=== PATIENT | male | born 1975 ===

== ENCOUNTER 2017-05-12 21:28 | Inpatient (IN) ==
[2017-05-13] MEDS ORDERED: ONDANSETRON 4 MG/2 ML VIAL IV PRN (01:37)
[2017-05-13] MEDS ORDERED: MORPHINE 2 MG/1 ML SYRINGE IV PRN (01:37)
[2017-05-13] MEDS ORDERED: DEXTROSE 50% 25 GM/50 ML VIAL IV PRN (01:41)
[2017-05-13] MEDS ORDERED: GLUCAGON 1 MG VIAL IM PRN (01:41)
[2017-05-13] MEDS ORDERED: SODIUM CHLORIDE 0.9% 1,000 ML IV SCH (02:00)
[2017-05-13] MEDS: DEXTROSE 5% NACL 0.9% 1,000 ML IV SCH ×3 (02:55→22:17)
[2017-05-13 03:57] LABS: Basophils # 0.1 10*3/uL (0.0-0.2); Basophils % 0.4 % (0.0-0.8); Hematocrit 24.7 VOL% (42.0-52.0); Hemoglobin 8.5 GM/DL (14.0-18.0); Immature Granulocytes % 0.8 %; Immature Granulocytes Absolute 0.13 #; Lymphocytes # 0.8 10*3/uL (1.4-4.0); Lymphocytes % 5.1 % (21.2-54.2); Mean Corpuscular HGB Conc 34.4 GM/DL (32-36); Mean Corpuscular Hemoglobin 32 PG (27-34); Mean Corpuscular Volume 91.5 FL (87-102); Mean Platelet Volume 10.4 FL (9.6-12.0); Monocytes # 1.3 10*3/uL (0.11-0.8); Monocytes % 8.1 % (1.7-12.7); Neutrophils % 85.6 % (38.7-73.9); Platelet Count 326 T/CUMM (130-400); White Blood Count 16.4 T/CUMM (4-12)
[2017-05-13 04:35] LABS: Albumin 1.8 G/DL (3.4-5.0); Bilirubin,Total 0.4 MG/DL (0.2-1.0); Calcium 6.1 MG/DL (8.5-10.1); Osmolality,Calculated 292.2 MOS/KG (273-304); Potassium 3.8 MMOL/L (3.5-5.1); Risk Ratio 4.06; Total Protein 5.9 G/DL (6.4-8.3); VLDL CHOLESTEROL 27.6 MG/DL
[2017-05-13] MEDS ORDERED: INSULIN REGULAR 100 UNIT/ML SUBCUT SCH (06:00)
[2017-05-13] MEDS: PIPERACILLIN/TAZOBACTAM 3,375 MG in SODIUM CHLORIDE 0.9% 100 ML IV SCH ×2 (06:50→18:45)
[2017-05-13] MEDS ORDERED: ACETAMINOPHEN 500 MG TABLET PO ONE (07:01)
[2017-05-13] MEDS ORDERED: SKIN HEALING OINT (AQUAPHOR) 50 GM TUBE TOP PRN (08:00)
[2017-05-13] MEDS ORDERED: ACETAMINOPHEN 325 MG TABLET PO PRN (08:00)
[2017-05-13] MEDS ORDERED: VANCOMYCIN INJ 1,750 MG in SODIUM CHLORIDE 0.9% 500 ML IV ONE (08:00)
[2017-05-13] MEDS ORDERED: CALCIUM GLUCONATE 2,000 MG in SODIUM CHLORIDE 0.9% 100 ML IV ONE (08:00)
[2017-05-13] MEDS: CARVEDILOL 3.125 MG TABLET PO SCH ×2 (09:10→20:42)
[2017-05-13] MEDS: amLODIPine 5 MG TABLET PO SCH (09:10)
[2017-05-13] MEDS: MULTIVITAMIN (CENTRUM) TABLET PO SCH (09:19)
[2017-05-13] MEDS: FUROSEMIDE 80 MG TABLET PO SCH (09:19)
[2017-05-13] MEDS: ENOXAPARIN 30 MG/0.3 ML SYRINGE SUBCUT SCH (09:19)
[2017-05-13] MEDS: SKIN HEALING OINT (AQUAPHOR) 50 GM TUBE TOP SCH ×2 (09:19→20:42)
[2017-05-13] MEDS: PANTOPRAZOLE 40 MG TABLET PO SCH (09:20)
[2017-05-13] MEDS ORDERED: PROPOFOL 200 MG/20 ML VIAL IV ONE (11:41)
[2017-05-13] MEDS ORDERED: fentaNYL 100 MCG/2 ML VIAL ONE (11:42)
[2017-05-13] MEDS ORDERED: MIDAZOLAM 2 MG/2 ML VIAL ONE (11:42)
[2017-05-13] MEDS ORDERED: VANCOMYCIN INJ 1,750 MG in SODIUM CHLORIDE 0.9% 500 ML IV PRN (14:55)
[2017-05-13] MEDS: GABAPENTIN 100 MG CAPSULE PO SCH (20:42)
[2017-05-14 01:30] LABS: Amorphous Crystals,Urine Occasional /HPF (Few); Apearance,Urine CLOUDY (Clear); Bacteria,Urine Occasional /HPF (Few); Bilirubin,Urine Negative (Negative); Blood, Urine Small mg/dL (Negative); Glucose,Urine (UA) >=500 mg/dL (Negative); Granular Casts,Urine 8 /LPF (0-1); Ketones,Urine Negative (Negative); Nitrite,Urine Negative (Negative); Protein,Urine >=500 MG/DL; Urine Color Amber (Yellow); Urine Specific Gravity 1.013 (1.001-1.035); WBC,Urine 15 /HPF (0-6)
[2017-05-14] MEDS: PIPERACILLIN/TAZOBACTAM 3,375 MG in SODIUM CHLORIDE 0.9% 100 ML IV SCH ×2 (06:07→18:07)
[2017-05-14 06:34] LABS: Basophils # 0.1 10*3/uL (0.0-0.2); Basophils % 0.3 % (0.0-0.8); Eosinophils # 0.5 10*3/uL (0.0-0.87); Eosinophils % 2.7 % (0.00-10.9); Hematocrit 24.4 VOL% (42.0-52.0); Hemoglobin 8.6 GM/DL (14.0-18.0); Immature Granulocytes % 1.1 %; Immature Granulocytes Absolute 0.19 #; Lymphocytes # 1.1 10*3/uL (1.4-4.0); Lymphocytes % 6.2 % (21.2-54.2); Mean Corpuscular HGB Conc 35.2 GM/DL (32-36); Mean Corpuscular Hemoglobin 32 PG (27-34); Mean Corpuscular Volume 91.4 FL (87-102); Mean Platelet Volume 10.2 FL (9.6-12.0); Monocytes # 1.2 10*3/uL (0.11-0.8); Monocytes % 6.8 % (1.7-12.7); Neutrophils % 82.9 % (38.7-73.9); Platelet Count 337 T/CUMM (130-400); Red Blood Count 2.67 MC/CUMM (3.8-5.5); Red Cell Distribution Width 13.5 % (9.3-17.3)
[2017-05-14 07:05] LABS: Albumin 1.8 G/DL (3.4-5.0); Bilirubin,Total 0.8 MG/DL (0.2-1.0); Osmolality,Calculated 300.1 MOS/KG (273-304); Potassium 3.7 MMOL/L (3.5-5.1); Total Protein 5.7 G/DL (6.4-8.3)
[2017-05-14 07:29] LABS: Barbiturates Screen,Urine Negative (Negative); Benzodiazepines Screen,Urine Positive (Negative); Cannabinoid Screen,Urine Negative (Negative); Opiate Screen,Urine Negative (Negative); Phencyclidine Screen,Urine Negative (Negative)
[2017-05-14] MEDS: INSULIN REGULAR 100 UNIT/ML SUBCUT SCH ×4 (08:36→21:11)
[2017-05-14] MEDS: PANTOPRAZOLE 40 MG TABLET PO SCH (08:37)
[2017-05-14] MEDS: MULTIVITAMIN (CENTRUM) TABLET PO SCH (08:37)
[2017-05-14] MEDS: amLODIPine 5 MG TABLET PO SCH (08:37)
[2017-05-14] MEDS: CARVEDILOL 3.125 MG TABLET PO SCH ×2 (08:37→21:10)
[2017-05-14] MEDS: FUROSEMIDE 80 MG TABLET PO SCH (08:37)
[2017-05-14] MEDS: ENOXAPARIN 30 MG/0.3 ML SYRINGE SUBCUT SCH (08:37)
[2017-05-14] MEDS: SKIN HEALING OINT (AQUAPHOR) 50 GM TUBE TOP SCH ×2 (08:39→21:14)
[2017-05-14] MEDS: SODIUM BICARBONATE 650 MG TABLET PO SCH ×2 (14:24→21:10)
[2017-05-14] MEDS ORDERED: INSULIN GLARGINE 100 UNIT/ML SUBCUT SCH (21:00)
[2017-05-14] MEDS: GABAPENTIN 100 MG CAPSULE PO SCH (21:10)
[2017-05-15] MEDS: PIPERACILLIN/TAZOBACTAM 3,375 MG in SODIUM CHLORIDE 0.9% 100 ML IV SCH ×3 (06:03→18:28)
[2017-05-15] MEDS: DEXTROSE 5% NACL 0.9% 1,000 ML IV SCH ×2 (06:04→08:34)
[2017-05-15] MEDS: PANTOPRAZOLE 40 MG TABLET PO SCH (08:27)
[2017-05-15] MEDS: amLODIPine 5 MG TABLET PO SCH (08:27)
[2017-05-15] MEDS: CARVEDILOL 3.125 MG TABLET PO SCH ×2 (08:27→20:32)
[2017-05-15] MEDS: SODIUM BICARBONATE 650 MG TABLET PO SCH ×3 (08:27→20:32)
[2017-05-15] MEDS: MULTIVITAMIN (CENTRUM) TABLET PO SCH (08:27)
[2017-05-15] MEDS: INSULIN REGULAR 100 UNIT/ML SUBCUT SCH ×4 (08:27→20:32)
[2017-05-15] MEDS: SKIN HEALING OINT (AQUAPHOR) 50 GM TUBE TOP SCH ×2 (08:28→21:23)
[2017-05-15] MEDS: FUROSEMIDE 80 MG TABLET PO SCH (08:31)
[2017-05-15] MEDS: ENOXAPARIN 30 MG/0.3 ML SYRINGE SUBCUT SCH (08:31)
[2017-05-15] MEDS: INSULIN GLARGINE 100 UNIT/ML SUBCUT SCH (20:31)
[2017-05-15] MEDS: GABAPENTIN 100 MG CAPSULE PO SCH (20:32)
[2017-05-16] MEDS: DEXTROSE 5% NACL 0.9% 1,000 ML IV SCH (05:19)
[2017-05-16 06:02] LABS: Basophils # 0.1 10*3/uL (0.0-0.2); Basophils % 0.6 % (0.0-0.8); Eosinophils # 0.8 10*3/uL (0.0-0.87); Eosinophils % 7.4 % (0.00-10.9); Hematocrit 22.9 VOL% (42.0-52.0); Hemoglobin 7.6 GM/DL (14.0-18.0); Immature Granulocytes % 4.1 %; Immature Granulocytes Absolute 0.43 #; Lymphocytes # 1.3 10*3/uL (1.4-4.0); Lymphocytes % 12.7 % (21.2-54.2); Mean Corpuscular HGB Conc 33.2 GM/DL (32-36); Mean Corpuscular Hemoglobin 31 PG (27-34); Mean Corpuscular Volume 93.1 FL (87-102); Mean Platelet Volume 10.2 FL (9.6-12.0); Monocytes % 9.1 % (1.7-12.7); Neutrophils # 6.9 10*3/uL (1.4-7.4); Neutrophils % 66.1 % (38.7-73.9); Platelet Count 457 T/CUMM (130-400); Red Blood Count 2.46 MC/CUMM (3.8-5.5); Red Cell Distribution Width 13.3 % (9.3-17.3); White Blood Count 10.4 T/CUMM (4-12)
[2017-05-16] MEDS: PIPERACILLIN/TAZOBACTAM 3,375 MG in SODIUM CHLORIDE 0.9% 100 ML IV SCH ×2 (06:03→18:18)
[2017-05-16 06:29] LABS: Albumin 1.5 G/DL (3.4-5.0); Bilirubin,Total 0.4 MG/DL (0.2-1.0); Calcium 6.3 MG/DL (8.5-10.1); Potassium 3.8 MMOL/L (3.5-5.1); Total Protein 5.8 G/DL (6.4-8.3)
[2017-05-16] MEDS ORDERED: SODIUM CHLORIDE 0.9% 1,000 ML IV PRN (06:50)
[2017-05-16] MEDS: INSULIN REGULAR 100 UNIT/ML SUBCUT SCH ×4 (08:40→22:10)
[2017-05-16] MEDS: amLODIPine 5 MG TABLET PO SCH (08:44)
[2017-05-16] MEDS: CARVEDILOL 3.125 MG TABLET PO SCH ×2 (08:44→22:10)
[2017-05-16] MEDS: PANTOPRAZOLE 40 MG TABLET PO SCH (08:45)
[2017-05-16] MEDS: FUROSEMIDE 80 MG TABLET PO SCH (08:45)
[2017-05-16] MEDS: MULTIVITAMIN (CENTRUM) TABLET PO SCH (08:45)
[2017-05-16] MEDS: SODIUM BICARBONATE 650 MG TABLET PO SCH ×3 (08:45→22:10)
[2017-05-16 08:46] LABS: Hemoglobin 8.3 GM/DL (14.0-18.0)
[2017-05-16] MEDS: SODIUM CHLORIDE 0.45% 1,000 ML IV SCH (08:46)
[2017-05-16] MEDS: SKIN HEALING OINT (AQUAPHOR) 50 GM TUBE TOP SCH ×2 (08:46→22:11)
[2017-05-16] MEDS: ENOXAPARIN 30 MG/0.3 ML SYRINGE SUBCUT SCH (08:47)
[2017-05-16] MEDS: GABAPENTIN 100 MG CAPSULE PO SCH (22:10)
[2017-05-16] MEDS: INSULIN GLARGINE 100 UNIT/ML SUBCUT SCH (22:11)
[2017-05-17 05:58] LABS: Basophils # 0.1 10*3/uL (0.0-0.2); Basophils % 0.8 % (0.0-0.8); Eosinophils # 0.8 10*3/uL (0.0-0.87); Eosinophils % 8.4 % (0.00-10.9); Hematocrit 23.1 VOL% (42.0-52.0); Hemoglobin 8.2 GM/DL (14.0-18.0); Immature Granulocytes Absolute 0.36 #; Lymphocytes # 1.1 10*3/uL (1.4-4.0); Lymphocytes % 12.4 % (21.2-54.2); Mean Corpuscular HGB Conc 35.5 GM/DL (32-36); Mean Corpuscular Hemoglobin 32 PG (27-34); Mean Corpuscular Volume 90.2 FL (87-102); Monocytes # 0.9 10*3/uL (0.11-0.8); Monocytes % 9.7 % (1.7-12.7); Neutrophils # 5.8 10*3/uL (1.4-7.4); Neutrophils % 64.7 % (38.7-73.9); Platelet Count 522 T/CUMM (130-400); Red Blood Count 2.56 MC/CUMM (3.8-5.5); Red Cell Distribution Width 13.2 % (9.3-17.3); White Blood Count 8.9 T/CUMM (4-12)
[2017-05-17] MEDS: SODIUM CHLORIDE 0.45% 1,000 ML IV SCH (06:17)
[2017-05-17 06:34] LABS: Albumin 1.5 G/DL (3.4-5.0); Bilirubin,Total 0.4 MG/DL (0.2-1.0); Calcium 6.2 MG/DL (8.5-10.1); Osmolality,Calculated 291.1 MOS/KG (273-304); Total Protein 5.6 G/DL (6.4-8.3)
[2017-05-17] MEDS: PIPERACILLIN/TAZOBACTAM 3,375 MG in SODIUM CHLORIDE 0.9% 100 ML IV SCH (06:44)
[2017-05-17] MEDS: INSULIN REGULAR 100 UNIT/ML SUBCUT SCH ×4 (08:11→21:50)
[2017-05-17] MEDS: amLODIPine 5 MG TABLET PO SCH (09:01)
[2017-05-17] MEDS: FUROSEMIDE 80 MG TABLET PO SCH (09:02)
[2017-05-17] MEDS: CARVEDILOL 3.125 MG TABLET PO SCH ×2 (09:02→21:49)
[2017-05-17] MEDS: ENOXAPARIN 30 MG/0.3 ML SYRINGE SUBCUT SCH (09:02)
[2017-05-17] MEDS: SODIUM BICARBONATE 650 MG TABLET PO SCH ×3 (09:02→21:49)
[2017-05-17] MEDS: MULTIVITAMIN (CENTRUM) TABLET PO SCH (09:02)
[2017-05-17] MEDS: PANTOPRAZOLE 40 MG TABLET PO SCH (09:02)
[2017-05-17] MEDS: SKIN HEALING OINT (AQUAPHOR) 50 GM TUBE TOP SCH ×2 (09:02→21:52)
[2017-05-17] MEDS: AMPICILLIN/SULBACTAM 3,000 MG in SODIUM CHLORIDE 0.9% 100 ML IV SCH (16:48)
[2017-05-17 19:20] LABS: Hemoglobin 9.9 GM/DL (14.0-18.0)
[2017-05-17] MEDS: INSULIN GLARGINE 100 UNIT/ML SUBCUT SCH (21:49)
[2017-05-17] MEDS: GABAPENTIN 100 MG CAPSULE PO SCH (21:49)
[2017-05-18 07:30] LABS: Calcium 6.4 MG/DL (8.5-10.1); Osmolality,Calculated 292.1 MOS/KG (273-304); Potassium 4.2 MMOL/L (3.5-5.1)
[2017-05-18 07:59] LABS: Hepatitis A Ab IgM Quant 0.06 Index; Hepatitis A Ab IgM Result Negative (Negative); Hepatitis B Core IgM Quant 0.17 Index; Hepatitis B Core IgM Result Negative (Negative); Hepatitis B Surface Ag Quant < 0.10 Index; Hepatitis B Surface Ag Result Negative (Negative); Hepatitis C Virus Ab Quant 0.14 Index; Hepatitis C Virus Ab Result Negative (Negative)
[2017-05-18] MEDS: INSULIN REGULAR 100 UNIT/ML SUBCUT SCH ×4 (09:17→21:58)
[2017-05-18] MEDS: PANTOPRAZOLE 40 MG TABLET PO SCH (09:56)
[2017-05-18] MEDS: amLODIPine 5 MG TABLET PO SCH (09:56)
[2017-05-18] MEDS: SODIUM BICARBONATE 650 MG TABLET PO SCH ×3 (09:56→21:56)
[2017-05-18] MEDS: CARVEDILOL 3.125 MG TABLET PO SCH ×2 (09:56→21:57)
[2017-05-18] MEDS: SKIN HEALING OINT (AQUAPHOR) 50 GM TUBE TOP SCH ×2 (09:56→21:58)
[2017-05-18] MEDS: MULTIVITAMIN (CENTRUM) TABLET PO SCH (09:56)
[2017-05-18] MEDS: FUROSEMIDE 80 MG TABLET PO SCH (09:56)
[2017-05-18] MEDS: ENOXAPARIN 30 MG/0.3 ML SYRINGE SUBCUT SCH (09:58)
[2017-05-18] MEDS: AMPICILLIN/SULBACTAM 3,000 MG in SODIUM CHLORIDE 0.9% 100 ML IV SCH (15:02)
[2017-05-18] MEDS: GABAPENTIN 100 MG CAPSULE PO SCH (21:57)
[2017-05-18] MEDS: INSULIN GLARGINE 100 UNIT/ML SUBCUT SCH (21:57)
[2017-05-19] MEDS ORDERED: TISSUE ADHESIVE 1 EACH APPLICATOR TOP ONE (06:14)
[2017-05-19] MEDS ORDERED: HEPARIN 5,000 UNIT/1 ML VIAL ONE (06:14)
[2017-05-19] MEDS ORDERED: LIDOCAINE 1%/EPI INJ 20 ML VIAL ONE (06:14)
[2017-05-19] MEDS ORDERED: BUPIVACAINE 0.25% 50 ML VIAL ONE (06:14)
[2017-05-19 06:38] LABS: Basophils # 0.1 10*3/uL (0.0-0.2); Basophils % 0.8 % (0.0-0.8); Eosinophils # 0.9 10*3/uL (0.0-0.87); Eosinophils % 8.9 % (0.00-10.9); Hemoglobin 11.3 GM/DL (14.0-18.0); Immature Granulocytes % 2.1 %; Immature Granulocytes Absolute 0.22 #; Lymphocytes # 1.2 10*3/uL (1.4-4.0); Lymphocytes % 11.3 % (21.2-54.2); Mean Corpuscular HGB Conc 35.3 GM/DL (32-36); Mean Corpuscular Hemoglobin 31 PG (27-34); Mean Corpuscular Volume 87.9 FL (87-102); Mean Platelet Volume 9.3 FL (9.6-12.0); Monocytes # 0.8 10*3/uL (0.11-0.8); Monocytes % 7.8 % (1.7-12.7); Neutrophils # 7.1 10*3/uL (1.4-7.4); Neutrophils % 69.1 % (38.7-73.9); Platelet Count 637 T/CUMM (130-400); Red Blood Count 3.64 MC/CUMM (3.8-5.5); Red Cell Distribution Width 13.8 % (9.3-17.3); White Blood Count 10.3 T/CUMM (4-12)
[2017-05-19 07:08] LABS: Calcium 6.4 MG/DL (8.5-10.1); Potassium 4.5 MMOL/L (3.5-5.1)
[2017-05-19] MEDS ORDERED: PROPOFOL 200 MG/20 ML VIAL IV ONE (07:49)
[2017-05-19] MEDS ORDERED: fentaNYL 100 MCG/2 ML VIAL ONE (07:49)
[2017-05-19] MEDS ORDERED: KETAMINE 500 MG/10 ML VIAL ONE (07:50)
[2017-05-19] MEDS ORDERED: SODIUM CHLORIDE 0.9% 250 ML IV ONE (07:51)
[2017-05-19] MEDS ORDERED: MIDAZOLAM 2 MG/2 ML VIAL ONE (07:51)
[2017-05-19] MEDS: INSULIN REGULAR 100 UNIT/ML SUBCUT SCH ×4 (07:53→21:40)
[2017-05-19] MEDS: MULTIVITAMIN (CENTRUM) TABLET PO SCH (08:00)
[2017-05-19] MEDS: FUROSEMIDE 80 MG TABLET PO SCH (09:19)
[2017-05-19] MEDS: SODIUM BICARBONATE 650 MG TABLET PO SCH ×3 (09:19→21:37)
[2017-05-19] MEDS: amLODIPine 5 MG TABLET PO SCH (09:19)
[2017-05-19] MEDS: PANTOPRAZOLE 40 MG TABLET PO SCH (09:19)
[2017-05-19] MEDS: CARVEDILOL 3.125 MG TABLET PO SCH ×2 (09:19→21:37)
[2017-05-19] MEDS: ENOXAPARIN 30 MG/0.3 ML SYRINGE SUBCUT SCH (09:20)
[2017-05-19] MEDS: SKIN HEALING OINT (AQUAPHOR) 50 GM TUBE TOP SCH ×2 (09:24→21:00)
[2017-05-19] MEDS: AMPICILLIN/SULBACTAM 3,000 MG in SODIUM CHLORIDE 0.9% 100 ML IV SCH (14:00)
[2017-05-19] MEDS ORDERED: HEPARIN 10,000 UNIT/10 ML VIAL IV PRN (17:00)
[2017-05-19] MEDS: GABAPENTIN 100 MG CAPSULE PO SCH (21:37)
[2017-05-19] MEDS: INSULIN GLARGINE 100 UNIT/ML SUBCUT SCH (21:40)
[2017-05-20] MEDS: INSULIN REGULAR 100 UNIT/ML SUBCUT SCH ×4 (07:52→22:14)
[2017-05-20] MEDS: SKIN HEALING OINT (AQUAPHOR) 50 GM TUBE TOP SCH ×2 (09:45→22:16)
[2017-05-20] MEDS: MULTIVITAMIN (CENTRUM) TABLET PO SCH (09:48)
[2017-05-20] MEDS: PANTOPRAZOLE 40 MG TABLET PO SCH (09:48)
[2017-05-20] MEDS: SODIUM BICARBONATE 650 MG TABLET PO SCH ×3 (09:48→22:11)
[2017-05-20] MEDS: ENOXAPARIN 30 MG/0.3 ML SYRINGE SUBCUT SCH (09:48)
[2017-05-20] MEDS: CARVEDILOL 3.125 MG TABLET PO SCH ×2 (16:35→22:11)
[2017-05-20] MEDS: amLODIPine 10 MG TABLET PO SCH (16:35)
[2017-05-20] MEDS: FUROSEMIDE 80 MG TABLET PO SCH (16:35)
[2017-05-20] MEDS: AMPICILLIN/SULBACTAM 3,000 MG in SODIUM CHLORIDE 0.9% 100 ML IV SCH (16:35)
[2017-05-20] MEDS: GABAPENTIN 100 MG CAPSULE PO SCH (21:55)
[2017-05-20] MEDS: INSULIN GLARGINE 100 UNIT/ML SUBCUT SCH (22:13)
[2017-05-21 05:15] LABS: Basophils # 0.1 10*3/uL (0.0-0.2); Basophils % 0.7 % (0.0-0.8); Eosinophils # 0.4 10*3/uL (0.0-0.87); Eosinophils % 4.7 % (0.00-10.9); Hematocrit 28.4 VOL% (42.0-52.0); Hemoglobin 10.2 GM/DL (14.0-18.0); Immature Granulocytes % 1.3 %; Immature Granulocytes Absolute 0.11 #; Lymphocytes # 1.1 10*3/uL (1.4-4.0); Lymphocytes % 12.4 % (21.2-54.2); Mean Corpuscular HGB Conc 35.9 GM/DL (32-36); Mean Corpuscular Hemoglobin 32 PG (27-34); Mean Corpuscular Volume 88.8 FL (87-102); Mean Platelet Volume 9.2 FL (9.6-12.0); Monocytes # 0.9 10*3/uL (0.11-0.8); Monocytes % 10.1 % (1.7-12.7); Neutrophils % 70.8 % (38.7-73.9); Platelet Count 527 T/CUMM (130-400); Red Cell Distribution Width 13.6 % (9.3-17.3); White Blood Count 8.5 T/CUMM (4-12)
[2017-05-21 05:47] LABS: Osmolality,Calculated 291.1 MOS/KG (273-304); Potassium 3.9 MMOL/L (3.5-5.1)
[2017-05-21] MEDS: INSULIN REGULAR 100 UNIT/ML SUBCUT SCH ×2 (07:49→13:39)
[2017-05-21] MEDS: SKIN HEALING OINT (AQUAPHOR) 50 GM TUBE TOP SCH (08:19)
[2017-05-21] MEDS: PANTOPRAZOLE 40 MG TABLET PO SCH (08:24)
[2017-05-21] MEDS: MULTIVITAMIN (CENTRUM) TABLET PO SCH (08:25)
[2017-05-21] MEDS: ENOXAPARIN 30 MG/0.3 ML SYRINGE SUBCUT SCH (08:25)
[2017-05-21] MEDS: SODIUM BICARBONATE 650 MG TABLET PO SCH ×2 (08:25→15:13)
[2017-05-21] MEDS: amLODIPine 10 MG TABLET PO SCH (14:22)
[2017-05-21] MEDS: FUROSEMIDE 80 MG TABLET PO SCH (14:22)
[2017-05-21] MEDS: CARVEDILOL 3.125 MG TABLET PO SCH (14:22)
[2017-05-21 14:23] VITALS: BP 122/80
[2017-05-21] MEDS: AMPICILLIN/SULBACTAM 3,000 MG in SODIUM CHLORIDE 0.9% 100 ML IV SCH (14:30)
== END 2017-05-21 15:25 | DRG 853 ==
LOC: N.5E 23:25 → SUATTDRO 23:25
PROVIDERS: ADMIT Hospitalist

== ENCOUNTER 2018-11-13 13:46 | Inpatient (IN) ==
[2018-11-13] MEDS ORDERED: NICOTINE 21 MG/24 HR PATCH TRANSDERM PRN (17:26)
[2018-11-13] MEDS ORDERED: GLUCAGON 1 MG VIAL IM PRN (17:26)
[2018-11-13] MEDS ORDERED: ONDANSETRON 4 MG/2 ML VIAL IV PRN (17:26)
[2018-11-13] MEDS ORDERED: ACETAMINOPHEN 325 MG TABLET PO PRN (17:26)
[2018-11-13] MEDS ORDERED: DEXTROSE 50% 25 GM/50 ML VIAL IV PRN (17:26)
[2018-11-13] MEDS ORDERED: hydrALAZINE 20 MG/1 ML VIAL IV PRN (17:29)
[2018-11-13 18:01] VITALS: BP 147/88
[2018-11-13 18:47] LABS: Basophils # 0.1 10*3/uL (0.0-0.2); Basophils % 0.8 % (0.0-0.8); Eosinophils # 0.1 10*3/uL (0.0-0.87); Eosinophils % 1.4 % (0.00-10.9); Hematocrit 27.2 VOL% (42.0-52.0); Hemoglobin 8.9 GM/DL (14.0-18.0); Immature Granulocytes % 0.5 %; Immature Granulocytes Absolute 0.03 #; Lymphocytes # 0.9 10*3/uL (1.4-4.0); Lymphocytes % 14.3 % (21.2-54.2); Mean Corpuscular HGB Conc 32.7 GM/DL (32-36); Mean Corpuscular Volume 94.4 FL (87-102); Mean Platelet Volume 9.6 FL (9.6-12.0); Monocytes % 8.2 % (1.7-12.7); Neutrophils % 74.8 % (38.7-73.9); Platelet Count 240 T/CUMM (130-400); Red Blood Count 2.88 MC/CUMM (3.8-5.5); Red Cell Distribution Width 14.3 % (9.3-17.3); White Blood Count 6.6 T/CUMM (4-12)
[2018-11-13 19:08] LABS: Albumin 2.4 G/DL (3.4-5.0); Bilirubin,Total 0.4 MG/DL (0.2-1.0); Calcium 6.2 MG/DL (8.5-10.1); Osmolality,Calculated 280.4 MOS/KG (273-304); Risk Ratio 2.35; Total Protein 5.9 G/DL (6.4-8.3); VLDL CHOLESTEROL 14.6 MG/DL
[2018-11-13] MEDS: INSULIN REGULAR 100 UNIT/ML SUBCUT SCH (20:33)
[2018-11-14] MEDS: INSULIN REGULAR 100 UNIT/ML SUBCUT SCH ×3 (06:52→17:15)
[2018-11-14 08:04] LABS: Apearance,Urine CLEAR (Clear); Bacteria,Urine Occasional /HPF (Few); Bilirubin,Urine Negative (Negative); Blood, Urine Small mg/dL (Negative); Glucose,Urine (UA) 150 mg/dL (Negative); Hyaline Casts,Urine 1 /LPF (0-3); Ketones,Urine Negative (Negative); Nitrite,Urine Negative (Negative); Protein,Urine >=500 MG/DL; RBC,Urine 1 /HPF (0-4); Squamous Epithelial Cell,Urine Occasional /HPF (0-10); Urine Color Yellow (Yellow); Urine Specific Gravity 1.012 (1.001-1.035); Urine Urobilinogen < 2.0 EU/DL (0.2-1.0); WBC,Urine 2 /HPF (0-6)
[2018-11-14] MEDS ORDERED: SODIUM HYPOCHLORITE 0.25% IRRIG 473 ML BOTTLE TOP SCH (13:30)
[2018-11-15] MEDS ORDERED: amLODIPine 10 MG TABLET PO SCH (09:00)
== END 2018-11-14 17:25 | disposition home or self-care (01) | DRG 638 ==
LOC: SUATTDRO 16:58 → N.CC 16:58
PROVIDERS: ADMIT Internal Medicine; ATTEND Internal Medicine

== ENCOUNTER 2019-08-17 17:46 | Inpatient (IN) ==
[2019-08-17] MEDS ORDERED: ACETAMINOPHEN 500 MG TABLET PO STA (17:57)
[2019-08-17] MEDS ORDERED: LEVOFLOXACIN INJ 750 MG in PREMIX 1 EACH IV STA (18:26)
[2019-08-17] MEDS ORDERED: ACETAMINOPHEN 500 MG TABLET ONE (18:39)
[2019-08-17] MEDS ORDERED: LEVOFLOXACIN INJ 150 ML IV ONE (18:40)
[2019-08-17 18:42] LABS: Basophils % 0.2 % (0.0-0.8); Hematocrit 28.9 VOL% (42.0-52.0); Hemoglobin 9.7 GM/DL (14.0-18.0); Immature Granulocytes % 0.4 %; Immature Granulocytes Absolute 0.02 #; Lymphocytes # 0.5 10*3/uL (1.4-4.0); Lymphocytes % 10.4 % (21.2-54.2); Mean Corpuscular HGB Conc 33.6 GM/DL (32-36); Mean Corpuscular Volume 93.5 FL (87-102); Mean Platelet Volume 10.5 FL (9.6-12.0); Platelet Count 175 T/CUMM (130-400); Red Blood Count 3.09 MC/CUMM (3.8-5.5); Red Cell Distribution Width 13.8 % (9.3-17.3)
[2019-08-17 19:13] LABS: Apearance,Urine Slightly Hazy (Clear); Bilirubin,Urine Negative (Negative); Blood, Urine Negative (Negative); Glucose,Urine (UA) 150 mg/dL (Negative); Ketones,Urine 5 mg/dL (Negative); Mucus,Urine Occasional /LPF (Occasional); Nitrite,Urine Negative (Negative); Protein,Urine >=500 MG/DL; RBC,Urine 8 /HPF (0-4); Squamous Epithelial Cell,Urine Occasional /HPF (0-10); Urine Color Yellow (Yellow); Urine Specific Gravity 1.023 (1.001-1.035); Urine Urobilinogen < 2.0 EU/DL (0.2-1.0); WBC,Urine 4 /HPF (0-6)
[2019-08-17 19:19] LABS: Albumin 3.2 G/DL (3.4-5.0); Bilirubin,Total 0.5 MG/DL (0.2-1.0); Calcium 7.2 MG/DL (8.5-10.1); Osmolality,Calculated 286.1 MOS/KG (273-304); Total Protein 7.6 G/DL (6.4-8.3)
[2019-08-17] MEDS ORDERED: MORPHINE 4 MG/1 ML VIAL IV PRN (20:03)
[2019-08-17] MEDS ORDERED: ONDANSETRON 4 MG/2 ML VIAL IV PRN (20:03)
[2019-08-17] MEDS ORDERED: hydrALAZINE 20 MG/1 ML VIAL IV PRN (20:03)
[2019-08-17] MEDS ORDERED: NICOTINE 21 MG/24 HR PATCH TRANSDERM PRN (20:03)
[2019-08-17] MEDS ORDERED: GLUCAGON 1 MG VIAL IM PRN ×2 (20:03)
[2019-08-17] MEDS ORDERED: ZALEPLON 5 MG CAPSULE PO PRN (20:03)
[2019-08-17] MEDS ORDERED: DEXTROSE 50% 25 GM/50 ML VIAL IV PRN ×2 (20:03)
[2019-08-17] MEDS ORDERED: guaiFENesin/DM ER 600-30 MG TABLET PO PRN (20:03)
[2019-08-17] MEDS ORDERED: diphenhydrAMINE CAP 25 MG CAPSULE PO PRN (20:03)
[2019-08-17] MEDS ORDERED: DOCUSATE SODIUM 100 MG CAPSULE PO PRN (20:03)
[2019-08-17] MEDS ORDERED: ENOXAPARIN 80 MG/0.8 ML SYRINGE SUBCUT ONE (20:06)
[2019-08-17] MEDS ORDERED: AZITHROMYCIN INJ 500 MG in SODIUM CHLORIDE 0.9% 250 ML IV SCH (20:30)
[2019-08-17] MEDS: SODIUM CHLORIDE 0.9% 1,000 ML IV SCH (22:46)
[2019-08-17] MEDS: AZITHROMYCIN 250 MG TABLET PO SCH (22:46)
[2019-08-17] MEDS: ALBUTEROL INHALER 18 GM INH SCH (22:46)
[2019-08-17] MEDS: INSULIN LISPRO 100 UNIT/ML SUBCUT SCH (22:46)
[2019-08-17] MEDS: cefTRIAXone 1,000 MG in SYRINGE 1 EACH IV SCH (22:46)
[2019-08-18] MEDS: ALBUTEROL INHALER 18 GM INH SCH ×6 (04:15→23:30)
[2019-08-18 06:35] LABS: Basophils % 0.5 % (0.0-0.8); Hematocrit 31.6 VOL% (42.0-52.0); Hemoglobin 10.5 GM/DL (14.0-18.0); Immature Granulocytes % 0.5 %; Immature Granulocytes Absolute 0.02 #; Lymphocytes # 0.8 10*3/uL (1.4-4.0); Lymphocytes % 21.6 % (21.2-54.2); Mean Corpuscular HGB Conc 33.2 GM/DL (32-36); Mean Corpuscular Volume 93.2 FL (87-102); Mean Platelet Volume 10.9 FL (9.6-12.0); Monocytes % 7.3 % (1.7-12.7); Neutrophils % 70.1 % (38.7-73.9); Platelet Count 177 T/CUMM (130-400); Red Blood Count 3.39 MC/CUMM (3.8-5.5); Red Cell Distribution Width 13.8 % (9.3-17.3); White Blood Count 3.8 T/CUMM (4-12)
[2019-08-18 07:16] LABS: Calcium 7.1 MG/DL (8.5-10.1); Osmolality,Calculated 287.1 MOS/KG (273-304)
[2019-08-18] MEDS ORDERED: carvediloL 3.125 MG TABLET PO SCH (08:00)
[2019-08-18] MEDS: INSULIN LISPRO 100 UNIT/ML SUBCUT SCH ×4 (08:01→20:50)
[2019-08-18] MEDS ORDERED: FUROSEMIDE 80 MG TABLET PO SCH (09:00)
[2019-08-18] MEDS ORDERED: PANTOPRAZOLE 40 MG TABLET PO SCH (09:00)
[2019-08-18] MEDS: AZITHROMYCIN 250 MG TABLET PO SCH (09:31)
[2019-08-18] MEDS: HEPARIN 5,000 UNIT/1 ML VIAL SUBCUT SCH ×2 (09:31→16:47)
[2019-08-18] MEDS: cefTRIAXone 1,000 MG in SYRINGE 1 EACH IV SCH (09:31)
[2019-08-18] MEDS: SODIUM CHLORIDE 0.9% 1,000 ML IV SCH (11:16)
[2019-08-18] MEDS ORDERED: LOPERAMIDE 2 MG CAPSULE PO PRN (11:23)
[2019-08-18] MEDS ORDERED: LOPERAMIDE 2 MG CAPSULE PO ONE (11:23)
[2019-08-18] MEDS: ACETAMINOPHEN 325 MG TABLET PO PRN (20:40)
[2019-08-18] MEDS ORDERED: GABAPENTIN 100 MG CAPSULE PO SCH (21:00)
[2019-08-19] MEDS: HEPARIN 5,000 UNIT/1 ML VIAL SUBCUT SCH ×3 (01:41→17:05)
[2019-08-19] MEDS: ALBUTEROL INHALER 18 GM INH SCH ×4 (03:30→17:04)
[2019-08-19 06:03] LABS: Ferritin 1622.2 ng/ml (26-388)
[2019-08-19] MEDS: INSULIN LISPRO 100 UNIT/ML SUBCUT SCH ×3 (08:43→17:05)
[2019-08-19] MEDS ORDERED: MULTIVITAMIN (CENTRUM) TABLET PO SCH (09:00)
[2019-08-19] MEDS ORDERED: carvediloL 6.25 MG TABLET PO SCH (09:00)
[2019-08-19] MEDS ORDERED: amLODIPine 10 MG TABLET PO SCH (09:00)
[2019-08-19] MEDS: cefTRIAXone 1,000 MG in SYRINGE 1 EACH IV SCH (10:17)
[2019-08-19] MEDS: AZITHROMYCIN 250 MG TABLET PO SCH (10:18)
[2019-08-19] MEDS: ACETAMINOPHEN 325 MG TABLET PO PRN ×2 (10:18→14:30)
[2019-08-19 17:09] VITALS: BP 159/76
[2019-08-19] MEDS ORDERED: SIMVASTATIN 20 MG TABLET PO SCH (21:00)
== END 2019-08-19 18:12 | disposition home or self-care (01) | DRG 177 ==
LOC: EDBD → EDUNIT# → N.ED 17:46 → N.EDINP 20:03 → SUATTDRO 20:03 → N.EDINP 21:38 → N.2W 21:53
PROVIDERS: ADMIT Hospitalist; ATTEND Internal Medicine Critical Care Medicine

== ENCOUNTER 2019-11-25 12:48 | Observation (INO) ==
[2019-11-25 13:29] LABS: Basophils % 0.5 % (0.0-0.8); Hematocrit 29.8 VOL% (42.0-52.0); Hemoglobin 9.5 GM/DL (14.0-18.0); Immature Granulocytes % 0.9 %; Immature Granulocytes Absolute 0.08 #; Lymphocytes # 0.9 10*3/uL (1.4-4.0); Lymphocytes % 10.2 % (21.2-54.2); Mean Corpuscular HGB Conc 31.9 GM/DL (32-36); Mean Corpuscular Volume 95.5 FL (87-102); Mean Platelet Volume 9.8 FL (9.6-12.0); Monocytes % 5.5 % (1.7-12.7); Neutrophils % 82.9 % (38.7-73.9); Platelet Count 247 T/CUMM (130-400); Red Blood Count 3.12 MC/CUMM (3.8-5.5); Red Cell Distribution Width 14.9 % (9.3-17.3); White Blood Count 8.8 T/CUMM (4-12)
[2019-11-25 13:47] LABS: Albumin 3.1 G/DL (3.4-5.0); Bilirubin,Total 0.9 MG/DL (0.2-1.0); Osmolality,Calculated 287.9 MOS/KG (273-304); Total Protein 8.1 G/DL (6.4-8.3)
[2019-11-25] MEDS ORDERED: GLUCAGON 1 MG VIAL IM PRN ×2 (14:04)
[2019-11-25] MEDS ORDERED: ONDANSETRON 4 MG/2 ML VIAL IV PRN (14:04)
[2019-11-25] MEDS ORDERED: DEXTROSE 50% 25 GM/50 ML VIAL IV PRN ×2 (14:04)
[2019-11-25] MEDS ORDERED: INSULIN LISPRO 100 UNIT/ML SUBCUT SCH (16:30)
[2019-11-25] MEDS: INSULIN LISPRO 100 UNIT/ML SUBCUT SCH ×2 (16:34→21:52)
[2019-11-25] MEDS: ACETAMINOPHEN 325 MG TABLET PO PRN (21:47)
[2019-11-25] MEDS: ENOXAPARIN 30 MG/0.3 ML SYRINGE SUBCUT SCH (21:48)
[2019-11-26 01:35] LABS: Basophils # 0.1 10*3/uL (0.0-0.2); Basophils % 0.5 % (0.0-0.8); Hematocrit 30.5 VOL% (42.0-52.0); Hemoglobin 9.7 GM/DL (14.0-18.0); Immature Granulocytes % 1.4 %; Immature Granulocytes Absolute 0.13 #; Mean Corpuscular HGB Conc 31.8 GM/DL (32-36); Mean Corpuscular Volume 94.4 FL (87-102); Mean Platelet Volume 10.4 FL (9.6-12.0); Monocytes % 5.9 % (1.7-12.7); Neutrophils % 82.2 % (38.7-73.9); Platelet Count 255 T/CUMM (130-400); Red Blood Count 3.23 MC/CUMM (3.8-5.5); White Blood Count 9.5 T/CUMM (4-12)
[2019-11-26 01:56] LABS: Calcium 7.3 MG/DL (8.5-10.1); Osmolality,Calculated 285.5 MOS/KG (273-304)
[2019-11-26] MEDS: ACETAMINOPHEN 325 MG TABLET PO PRN ×2 (04:45→14:02)
[2019-11-26] MEDS: INSULIN LISPRO 100 UNIT/ML SUBCUT SCH ×4 (07:58→22:04)
[2019-11-26] MEDS ORDERED: GLUCAGON 1 MG VIAL IM PRN (11:06)
[2019-11-26] MEDS ORDERED: DEXTROSE 50% 25 GM/50 ML VIAL IV PRN (11:06)
[2019-11-26] MEDS: ENOXAPARIN 30 MG/0.3 ML SYRINGE SUBCUT SCH (22:04)
[2019-11-27] MEDS: ACETAMINOPHEN 325 MG TABLET PO PRN ×2 (00:17→11:46)
[2019-11-27 05:08] LABS: Basophils # 0.1 10*3/uL (0.0-0.2); Basophils % 0.5 % (0.0-0.8); Hematocrit 30.3 VOL% (42.0-52.0); Immature Granulocytes % 1.6 %; Immature Granulocytes Absolute 0.18 #; Lymphocytes # 1.2 10*3/uL (1.4-4.0); Lymphocytes % 10.4 % (21.2-54.2); Mean Corpuscular Volume 92.9 FL (87-102); Mean Platelet Volume 10.7 FL (9.6-12.0); NRBC # 0.14 10*3/uL; Neutrophils % 79.5 % (38.7-73.9); Platelet Count 281 T/CUMM (130-400); Red Blood Count 3.26 MC/CUMM (3.8-5.5); Red Cell Distribution Width 15.6 % (9.3-17.3); White Blood Count 11.1 T/CUMM (4-12)
[2019-11-27 05:33] LABS: Calcium 6.5 MG/DL (8.5-10.1); Osmolality,Calculated 287.9 MOS/KG (273-304)
[2019-11-27] MEDS ORDERED: MULTIVITAMIN (CENTRUM) TABLET PO SCH (09:00)
[2019-11-27] MEDS: INSULIN LISPRO 100 UNIT/ML SUBCUT SCH ×2 (09:09→12:21)
[2019-11-27 12:03] VITALS: BP 99/63
== END 2019-11-27 16:04 | disposition home or self-care (01) ==
LOC: EDUNIT# → EDBD → N.EDINP 12:48 → N.ED 12:48 → SUATTDRO 14:04 → N.TELEN 14:45
PROVIDERS: ADMIT Internal Medicine Geriatric Medicine; ATTEND Internal Medicine